=== PATIENT | female | born 1995 | race Caucasian/White ===

== ENCOUNTER 2021-08-17 02:40 | Observation (INO) | payer OTHER ==
[~2021-08-17] VITALS: Ht 165.1 cm; Wt 89.8 kg
[2021-08-17] MEDS ORDERED: PRETAB PO (03:18)
[2021-08-17 03:19] VITALS: BP 108/60
[2021-08-17] MEDS ORDERED: PANTOPRAZOLE 40 MG INJ VIAL IVP SCH (03:35)
[2021-08-17] MEDS ORDERED: LACTATED RINGERS 1,000 ML IV SCH (03:35)
[2021-08-17] MEDS ORDERED: FAMOTIDINE 20 MG/2 ML VIAL IV SCH (03:35)
[2021-08-17] MEDS ORDERED: ONDANSETRON 4 MG/2 ML VIAL IVP PRN (03:35)
[2021-08-17] MEDS ORDERED: ONDANSETRON 4 MG/2 ML VIAL ONE (03:48)
[2021-08-17] MEDS ORDERED: FAMOTIDINE 20 MG/2 ML VIAL ONE (03:48)
[2021-08-17] MEDS ORDERED: PANTOPRAZOLE 40 MG INJ VIAL ONE (03:48)
[2021-08-17 04:24] LABS: BASOPHILS % (AUTO) 0.2 % (0.0-2.0); EOSINOPHILS # (AUTO) 0.1 K/uL (0-0.4); EOSINOPHILS % (AUTO) 0.5 % (0.0-4.0); HEMOGLOBIN 10.1 g/dL (12.0-16.0); LYMPHOCYTES # (AUTO) 1.7 K/uL (2.5-16.5); MEAN CORPUSCULAR HEMOGLOBIN 26 pg (27-31); MEAN CORPUSCULAR HGB CONC 33 g/dL (33-37); MEAN CORPUSCULAR VOLUME 78.6 fL (80-94); MONOCYTES # (AUTO) 0.7 K/uL (0.8-1.0); MONOCYTES % (AUTO) 5.9 % (1.7-9.3); NEUTROPHILS # (AUTO) 9.8 K/uL (1.8-7.7); NEUTROPHILS % (AUTO) 79.4 % (42.2-75.2); PLATELET COUNT (AUTO) 281 K/uL (140-450); RED BLOOD CELL COUNT(AUTO) 3.94 MIL/uL (4.20-5.40); RED CELL DISTRIBUTION WIDTH 13.9 % (11.6-13.7); WHITE BLOOD COUNT (AUTO) 12.4 K/uL (4.8-10.8)
[2021-08-17 04:28] LABS: ALBUMIN 2.4 g/dL (3.4-5.0); ANION GAP 13.1 (8-16); CARBON DIOXIDE 27.8 mmol/L (21-32); CREATININE 0.6 mg/dL (0.6-1.3); POTASSIUM 3.9 mmol/L (3.5-5.1); TOTAL BILIRUBIN 0.2 mg/dL (0.0-1.0)
== END 2021-08-17 11:05 | disposition home or self-care (01) ==
LOC: MLD 02:40
PROVIDERS: ADMIT Obstetrics & Gynecology; ATTEND Obstetrics & Gynecology
DX: O99.612 Diseases of the digestive system complicating pregnancy, second trimester (principal); K21.9 Gastro-esophageal reflux disease without esophagitis; O21.2 Late vomiting of pregnancy; Z3A.27 27 weeks gestation of pregnancy
CPT/HCPCS: 36415; 59025; 80053; 81000; 85025; 96361; 96374; 96375; C9113; G0378; J2405; J3490